=== PATIENT | female | born 1960 | race Caucasian/White ===

== ENCOUNTER 2018-08-28 10:24 | Inpatient (IN) | payer SELFPAY ==
[2018-08-28] VITALS: BP 100/52
[~2018-08-28] VITALS: Ht 154.9 cm; Wt 86.6 kg
[2018-08-28 11:50] LABS: APTT 31.6 SECONDS (22.8-39.4); INR 1.13 (0.85-1.17)
[2018-08-28 11:55] LABS: BASOPHILS 0.2 % (0-2); EOSINOPHILS 1.1 % (0-7); HEMATOCRIT 28.9 % (36.0-48.0); HEMOGLOBIN 9.9 g/dL (12-16); IMMATURE GRANULOCYTES 0.7 % (0-5); LYMPHOCYTES 10.6 % (15-50); MCH 29.7 pg (26.0-34.0); MCHC 34.3 g/dL (31.0-37.0); MCV 86.8 fL (80.0-100.0); MEAN PLATELET VOLUME 9.4 fL (7.4-10.4); NEUTROPHILS 77.4 % (40-80); PLATELET COUNT 177 10x3/uL (130-400); RBC 3.33 10x6/uL (4.00-5.40); RDW 13.5 % (11.5-14.5); WBC 9.2 10x3/uL (4.8-10.8)
[2018-08-28 12:14] LABS: ALBUMIN 2.7 g/dL (3.4-5.0); ALKALINE PHOSPHATASE 111 U/L (46-116); ALT (SGPT) 7 U/L (10-68); BILIRUBIN - TOTAL 0.43 mg/dL (0.2-1.3); CALC OSMOLALITY 288 mosm/kg (275-300); CALCIUM 8.9 mg/dL (8.5-10.1); CARBON DIOXIDE 14.6 mmol/L (21.0-32.0); CHLORIDE - SERUM 102 mmol/L (98-107); CREATININE - SERUM 2.6 mg/dL (0.6-1.3); GLUCOSE 202 mg/dL (74-106); POTASSIUM - SERUM 3.6 mmol/L (3.5-5.1); PROTEIN - SERUM 7.3 g/dL (6.4-8.2); SODIUM 135 mmol/L (136-145); UREA NITROGEN 50 mg/dL (7-18); eGFR NON AFRICAN AMERICAN 20 mL/min (90-120)
[2018-08-28 12:25] LABS: CKMB 0.5 U/L (0.0-3.6); CREATINE KINASE 46 UL (21-215); MAGNESIUM - SERUM 2.3 mg/dL (1.8-2.4); TROPONIN-I < 0.017 ng/mL (0.000-0.060)
[2018-08-28 13:51] LABS: % SATURATION 8 % (15-55); IRON 20 ug/dl (35-150); TOTAL IRON BIND CAPACITY 237 ug/dl (260-445); UNSAT IRON BIND CAPACITY 217 ug/dl (150-375)
--- NOTE | 2018-08-28 15:08 | MORECARE ---
CASE MANAGEMENT DISCHARGE SUMMARY PATIENT: JENN CORTÉS UNIT: [id number] ADM DATE: 08/28/18 AGE: 57 : 58 SEX: F ROOM/BED: D.2201 AUTHOR: KAT LUJAN PHYSICIAN: REFERRING PHYSICIAN: DANIEL PLEITEZ MD DATE OF SERVICE: 08/28/18 Discharge Plan Patient Name: JENN CORTÉS [facility] [facility] 1960 Planned Disposition: Home Anticipated Discharge Date: 08/30/18 Discharge Date: Expected LOS: 2 Initial Reviewer: [email or web address] Initial Review Date: 08/28/2018 Generated: 08/28/18 4:08 pm DCPIA - Discharge Planning Initial Assessment Updated by [email or web address]: Marium Post on 08/28/18 3:06 pm * Is the patient Alert and Oriented? Yes * How many steps to enter\exit or inside your home? None * PCP In [place] * Pharmacy In [place] * Preadmission Environment Home with Family * ADLs Independent * Equipment None * List name and contact numbers for known caregivers / representatives who currently or will assist patient after discharge: Anatoliy Cortés - spouse - Vernell e - [facility] - [phone] * Verbal permission to speak to the caregivers and representatives has been obtained from the patient. Yes * Community resources currently utilized None * Additional services required to return to the preadmission environment? No * Can the patient safely return to the preadmission environment? Yes * Has this patient been hospitalized within the prior 30 days at any hospital? No Patient Name: JENN CORTÉS Page [id number] at 1508 All edits/amendments must be made on the electronic document DICTATION DATE: 08/28/18 1508 MAIL COURIER: ELE 08/28/18 1508 RPT#: [id number] DC DATE: STATUS: ADM IN [facility] [address] [place] [address] END OF REPORT
--- NOTE | 2018-08-28 15:16 | MORECARE ---
CASE MANAGEMENT DISCHARGE SUMMARY PATIENT: JENN CORTÉS UNIT: [id number] ADM DATE: 08/28/18 AGE: 57 : 58 SEX: F ROOM/BED: D.2201 AUTHOR: LEDOC PHYSICIAN: REFERRING PHYSICIAN: DANIEL PLEITEZ MD DATE OF SERVICE: 08/28/18 Discharge Plan Patient Name: JENN CORTÉS Facility: [facility]:[place] : 1960 Planned Disposition: Home Anticipated Discharge Date: 08/30/18 Discharge Date: Expected LOS: 2 Initial Reviewer: [email or web address] Initial Review Date: 08/28/2018 Generated: 08/28/18 4:15 pm DCP- Discharge Planning Updated by [email or web address]: Marium Post on 08/28/18 2:[address] Patient Name: JENN CORTÉS Admission Status: ER Accout number: [id number] Admission Date: 08-28-2018 : 1960 Admission Diagnosis: Attending: DANIEL PLEITEZ Current LOS: 1 Anticipated DC Date: 08-30-2018 Planned Disposition: Home Primary Insurance: UNINSURED DISCOUNT PLAN Discharge Planning Comments: CM met with patient to complete initial dc planning assessment. CM educated patient on the CM role and verbal consent given by patient to complete assessment. Patient lives at home with her and reports she is independent in her care at home. At discharge patient plans to return home which is in [place] and feels this is a safe discharge. She reports her will transport her home at discharge. CM discussed availability of home health, rehab services, and medical equipment. Patient denied known discharge needs at this time. CM will continue to follow and will assist as needed with dc plans/needs. Fruit Packer: Marium Post RN, [facility] DCPIA - Discharge Planning Initial Assessment Updated by [email or web address]: Marium Post on 08/28/18 3:06 pm * Is the patient Alert and Oriented? Yes * How many steps to enter\exit or inside your home? None * PCP In [place] * Pharmacy In [place] * Preadmission Environment Home with Family * ADLs Independent * Equipment None * List name and contact numbers for known caregivers / representatives who currently or will assist patient after discharge: Anatoliy Cortés - spouse - Vernell Sye - sister - [phone] * Verbal permission to speak to the caregivers and representatives has been obtained from the patient. Yes * Community resources currently utilized None * Additional services required to return to the preadmission environment? No * Can the patient safely return to the preadmission environment? Yes * Has this patient been hospitalized within the prior 30 days at any hospital? No Last DP export: 08/28/18 2:08 pm Patient Name: JENN CORTÉS Page [id number] at 1516 All edits/amendments must be made on the electronic document DICTATION DATE: 08/28/181514 IMPLEMENTATION MANAGER: ELE 08/28/181514 RPT#: [id number] DC DATE: STATUS: ADM IN [facility] [address] [place] [address] END OF REPORT
--- NOTE | 2018-08-28 15:52 | NUR ---
NOTIFIED BY LAB OF LACTIC ACID OF 2.9. PRIMARY NURSE TATIANA AND TREATING PROVIDER NOTIFIED.
[2018-08-28 16:33] VITALS: BP 147/86; BMI 36.1
[2018-08-28] MEDS ORDERED: GLUCOPHAGE500 MG PO (16:33)
[2018-08-28 20:00] VITALS: BP 129/58
[2018-08-29 04:00] VITALS: BP 111/52
[2018-08-29 04:29] LABS: BASOPHILS 0.2 % (0-2); EOSINOPHILS 3.7 % (0-7); HEMOGLOBIN 8.6 g/dL (12-16); IMMATURE GRANULOCYTES 0.4 % (0-5); MCH 29.8 pg (26.0-34.0); MCHC 34.4 g/dL (31.0-37.0); MCV 86.5 fL (80.0-100.0); MEAN PLATELET VOLUME 9.5 fL (7.4-10.4); MONOCYTES 4.6 % (2-11); NEUTROPHILS 79.1 % (40-80); PLATELET COUNT 192 10x3/uL (130-400); RBC 2.89 10x6/uL (4.00-5.40); RDW 13.7 % (11.5-14.5)
[2018-08-29 04:54] LABS: WBC 5.4 10x3/uL (4.8-10.8)
[2018-08-29 05:10] LABS: ALBUMIN 2.1 g/dL (3.4-5.0); ALKALINE PHOSPHATASE 91 U/L (46-116); ALT (SGPT) 8 U/L (10-68); BILIRUBIN - TOTAL 0.26 mg/dL (0.2-1.3); CALCIUM 8.5 mg/dL (8.5-10.1); CARBON DIOXIDE 15.7 mmol/L (21.0-32.0); CHLORIDE - SERUM 107 mmol/L (98-107); POTASSIUM - SERUM 3.1 mmol/L (3.5-5.1); SODIUM 139 mmol/L (136-145)
[2018-08-29 05:12] LABS: CALC OSMOLALITY 287 mosm/kg (275-300); CKMB 2.7 U/L (0.0-3.6); CREATINE KINASE 249 UL (21-215); CREATININE - SERUM 1.9 mg/dL (0.6-1.3); GLUCOSE 117 mg/dL (74-106); UREA NITROGEN 37 mg/dL (7-18); eGFR NON AFRICAN AMERICAN 29 mL/min (90-120)
[2018-08-29 06:04] LABS: APPEARANCE HAZY (CLEAR); BACTERIA MODERATE /hpf (NONE SEEN); BILIRUBIN NEGATIVE (NEGATIVE); COLOR YELLOW (YELLOW); GLUCOSE NEGATIVE (NEGATIVE); KETONE NEGATIVE (NEGATIVE); NITRITE NEGATIVE (NEGATIVE); PROTEIN NEGATIVE (NEGATIVE); RED CELLS - URINE 0-5 /hpf (0-5); UROBILINOGEN NORMAL (NORMAL)
[2018-08-29 08:45] VITALS: BP 111/62
[2018-08-29 10:22] LABS: FOLATE (FOLIC ACID) - SERUM 6.9 ng/mL (>3.0)
[2018-08-29 12:04] VITALS: BMI 36.1
[2018-08-29 12:59] VITALS: BP 96/54
[2018-08-29 14:49] VITALS: Ht 154.9 cm; Wt 86.6 kg
[2018-08-29 17:45] VITALS: BP 110/45
[2018-08-29 20:00] VITALS: BP 110/61
[2018-08-29 23:35] VITALS: BP 118/56
[2018-08-30 03:00] VITALS: BP 127/57
[2018-08-30 06:23] LABS: BASOPHILS 0.2 % (0-2); EOSINOPHILS 9.6 % (0-7); HEMATOCRIT 25.6 % (36.0-48.0); HEMOGLOBIN 8.6 g/dL (12-16); IMMATURE GRANULOCYTES 0.2 % (0-5); LYMPHOCYTES 23.3 % (15-50); MCH 29.3 pg (26.0-34.0); MCHC 33.6 g/dL (31.0-37.0); MCV 87.1 fL (80.0-100.0); MEAN PLATELET VOLUME 9.3 fL (7.4-10.4); MONOCYTES 6.8 % (2-11); NEUTROPHILS 59.9 % (40-80); PLATELET COUNT 202 10x3/uL (130-400); RBC 2.94 10x6/uL (4.00-5.40); WBC 5.3 10x3/uL (4.8-10.8)
[2018-08-30 06:51] LABS: BILIRUBIN - TOTAL 0.2 mg/dL (0.2-1.3); CALCIUM 8.6 mg/dL (8.5-10.1); CARBON DIOXIDE 17.5 mmol/L (21.0-32.0); PROTEIN - SERUM 6.9 g/dL (6.4-8.2)
[2018-08-30 06:53] LABS: ANION GAP 19.8 mmol/L (8-16); CREATININE - SERUM 1.4 mg/dL (0.6-1.3); POTASSIUM - SERUM 3.3 mmol/L (3.5-5.1)
--- NOTE | 2018-08-30 08:04 | NUR ---
PT ALERT X 4. BREATH SOUNDS CLEAR BILAT. IV TO RIGHT AC, SALINE LOCKED. DRESSING TO LEFT SIDE OF NECK CLEAN DRY AND INTACT. PT REPORTING PAIN OF 9/10, MEDICATED PER ORDERS, WILL MONITOR. BED LOW, CALL LIGHT IN REACH. NO OTHER NEEDS AT THIS TIME.
[2018-08-30 10:59] VITALS: BP 160/80
[2018-08-30 13:40] VITALS: BP 148/67
[2018-08-30 16:59] VITALS: BP 147/64
[2018-08-30 20:36] VITALS: BP 125/58
[2018-08-30 23:55] VITALS: BP 150/62
[2018-08-31 04:20] VITALS: BP 136/62
[2018-08-31 07:40] LABS: BASOPHILS 0.2 % (0-2); EOSINOPHILS 8.2 % (0-7); HEMATOCRIT 26.5 % (36.0-48.0); IMMATURE GRANULOCYTES 0.7 % (0-5); LYMPHOCYTES 30.7 % (15-50); MCH 29.7 pg (26.0-34.0); MCV 87.5 fL (80.0-100.0); MEAN PLATELET VOLUME 9.2 fL (7.4-10.4); MONOCYTES 6.9 % (2-11); NEUTROPHILS 53.3 % (40-80); PLATELET COUNT 200 10x3/uL (130-400); RBC 3.03 10x6/uL (4.00-5.40); WBC 4.5 10x3/uL (4.8-10.8)
--- NOTE | 2018-08-31 07:52 | NUR ---
PT ALERT X 4. BREATH SOUNDS CLEAR BILAT. IV TO RIGHT AC, PATENT, DRESSING CLEAN DRY AND INTACT. DRESSING TO NECK CLEAN DRY AND INTACT. PT REPORTING NO PAIN AT THIS TIME. BED LOW, CALL LIGHT IN REACH. NO OTHER NEEDS AT THIS TIME.
[2018-08-31 07:55] LABS: ALBUMIN 2.1 g/dL (3.4-5.0); ANION GAP 17.9 mmol/L (8-16); BILIRUBIN - TOTAL 0.27 mg/dL (0.2-1.3); CALCIUM 8.6 mg/dL (8.5-10.1); CARBON DIOXIDE 19.3 mmol/L (21.0-32.0); CREATININE - SERUM 1.1 mg/dL (0.6-1.3); MAGNESIUM - SERUM 1.3 mg/dL (1.8-2.4); PHOSPHOROUS 3.4 mg/dL (2.5-4.9); POTASSIUM - SERUM 3.2 mmol/L (3.5-5.1); PROTEIN - SERUM 7.4 g/dL (6.4-8.2)
[2018-08-31 08:59] VITALS: BP 148/69
[2018-08-31 13:09] VITALS: BP 160/72
[2018-08-31 16:47] VITALS: BP 157/77
[2018-08-31 20:00] VITALS: BP 157/93
[2018-09-01] VITALS: BP 140/75
[2018-09-01 03:00] VITALS: BP 142/69
[2018-09-01 05:57] LABS: BASOPHILS 0.2 % (0-2); EOSINOPHILS 5.4 % (0-7); HEMATOCRIT 28.1 % (36.0-48.0); HEMOGLOBIN 9.6 g/dL (12-16); IMMATURE GRANULOCYTES 1.3 % (0-5); LYMPHOCYTES 30.1 % (15-50); MCHC 34.2 g/dL (31.0-37.0); MCV 87.8 fL (80.0-100.0); MONOCYTES 6.7 % (2-11); NEUTROPHILS 56.3 % (40-80); PLATELET COUNT 179 10x3/uL (130-400); RDW 13.5 % (11.5-14.5); WBC 4.6 10x3/uL (4.8-10.8)
[2018-09-01 06:21] LABS: ALBUMIN 2.3 g/dL (3.4-5.0); ANION GAP 16.6 mmol/L (8-16); BILIRUBIN - TOTAL 0.27 mg/dL (0.2-1.3); CALCIUM 8.2 mg/dL (8.5-10.1); CARBON DIOXIDE 23.6 mmol/L (21.0-32.0); CREATININE - SERUM 0.9 mg/dL (0.6-1.3); POTASSIUM - SERUM 3.2 mmol/L (3.5-5.1); PROTEIN - SERUM 6.7 g/dL (6.4-8.2)
--- NOTE | 2018-09-01 07:15 | NUR ---
MORNING ASESSMENT COMPLETE. SEE ASSESSMENT FLOWSHEET FOR FURTHER DETAILS. PT LYIGNG IN BED AAO X4 TO PERSON, PLACE, TIME, AND SITUATION. C/O NAUSEA/VOMITTING- WILL GIVE ZOFDRAN WITH MORNING MEDS. DENIES FURTHER NEEDS AT THIS TIME. CL IN REACH. SIDE RAILS UP X3 FOR GAVIN MERRITT
[2018-09-01 08:44] VITALS: BP 147/64
[2018-09-01 10:29] LABS: MAGNESIUM - SERUM 1.6 mg/dL (1.8-2.4); POTASSIUM - SERUM 3.5 mmol/L (3.5-5.1)
[2018-09-01 12:38] VITALS: BP 134/75
[2018-09-01] MEDS ORDERED: KEFLEX500 MG PO (15:01)
[2018-09-01] MEDS ORDERED: HYDROCODON-ACE1 EAC7 PO (15:02)
--- NOTE | 2018-09-01 15:24 | NUR ---
PT STATED SHE HAS HAD FLU SHOT FOR THIS YEAR
--- NOTE | 2018-09-01 16:17 | NUR ---
D/C PT HOME VIA W/C. LEFT WITH ALL PERSONLA BELONGINGS. WENT OVER ALL D/C INFORMATION AND PT DENIES CONCERNS. CHANGED DRSG TO L SIDE OF NECK AND INFORCED TEACHING ON HOW TO CHANGE AT HOME.
--- NOTE | 2018-09-02 09:31 | MORECARE ---
CASE MANAGEMENT DISCHARGE SUMMARY PATIENT: JENN CORTÉS UNIT: [id number] ADM DATE: 08/28/18 AGE: 57 : 58 SEX: F ROOM/BED: D.2201 AUTHOR: LEDOC PHYSICIAN: REFERRING PHYSICIAN: DANIEL PLEITEZ MD DATE OF SERVICE: 09/02/18 Discharge Plan Patient Name: JENN CORTÉS Facility: [facility]:[place] : 1960 Planned Disposition: Home Anticipated Discharge Date: 08/30/18 Discharge Date: 09/01/2018 Expected LOS: 2 Initial Reviewer: [email or web address] Initial Review Date: 08/28/2018 Generated: 09/02/18 10:31 am DCP- Discharge Planning Updated by [email or web address]: Marium Post on 08/28/18 1:[address] Patient Name: JENN CORTÉS Admission Status: ER Accout number: [id number] Admission Date: 08-28-2018 : 1960 Admission Diagnosis: Attending: DANIEL PLEITEZ Current LOS: 1 Anticipated DC Date: 08-30-2018 Planned Disposition: Home Primary Insurance: UNINSURED DISCOUNT PLAN Discharge Planning Comments: CM met with patient to complete initial dc planning assessment. CM educated patient on the CM role and verbal consent given by patient to complete assessment. Patient lives at home with her and reports she is independent in her care at home. At discharge patient plans to return home which is in [place] and feels this is a safe discharge. She reports her will transport her home at discharge. CM discussed availability of home health, rehab services, and medical equipment. Patient denied known discharge needs at this time. CM will continue to follow and will assist as needed with dc plans/needs. Veterinary Nurse: Marium Post RN, [facility] DCPIA - Discharge Planning Initial Assessment Updated by [email or web address]: Marium Post on 08/28/18 3:06 pm * Is the patient Alert and Oriented? Yes * How many steps to enter\exit or inside your home? None * PCP In [place] * Pharmacy In [place] * Preadmission Environment Home with Family * ADLs Independent * Equipment None * List name and contact numbers for known caregivers / representatives who currently or will assist patient after discharge: Anatoliy Cortés - spouse - Vernell Lazarusaubrey - sister - [phone] * Verbal permission to speak to the caregivers and representatives has been obtained from the patient. Yes * Community resources currently utilized None * Additional services required to return to the preadmission environment? No * Can the patient safely return to the preadmission environment? Yes * Has this patient been hospitalized within the prior 30 days at any hospital? No Last DP export: 08/28/18 1:15 pm Patient Name: EJNN CORTÉS Page 77191 at 0931 All edits/amendments must be made on the electronic document DICTATION DATE: 09/02/18929 SUGAR COATING HAND: ELE 09/02/18929 RPT#: [id number] DC DATE:09/01/18 STATUS: DIS IN [facility] [address] [place] [address] END OF REPORT
--- NOTE | 2018-09-02 15:10 | OP ---
PATIENT NAME: JENN CAMERON MEDICAL RECORD: [id number] :58 LOCATION:D.MS Ngo1 ADMISSION DATE:08/28/18 SURGEON: RALPH PEARCE MD DATE OF OPERATION: 08/29/2018 PREOPERATIVE DIAGNOSES: 1. Left neck abscess. 2. Hypertension. 3. Chronic kidney disease. 4. Chronic obstructive pulmonary disease. POSTOPERATIVE DIAGNOSES: 1. Left neck abscess. 2. Hypertension. 3. Chronic kidney disease. 4. Chronic obstructive pulmonary disease. PROCEDURE: I&D of the left neck. SURGEON: Ralph Pearce MD REPORT OF PROCEDURE: The patient's left neck was prepped and draped in sterile fashion. A 10 mL of 1% lidocaine with epinephrine was infused into the surrounding tissues. A cruciate incision was made in the left neck and immediately purulence was encountered. We turned this into a [place] incision and irrigated out this subcutaneous wound with peroxide solution. At the conclusion of this, we were having more clear return of fluid from the neck. There did not appear to be significant tracking through the neck. At this point, the wound was packed with the corner of a 4 x 4 and dressed with dry 4 4's and tape. COMPLICATIONS: None. CONDITION: Stable. ANESTHESIA: Local. BLOOD LOSS: 30 mL. Procedure done at the bedside. TRANSINT:[id number] Voice Confirmation ID: [id number] DOCUMENT ID: [id number] RALPH PEARCE MD at 1510 CC: [id number] DICTATION DATE: 08/29/18 1449 LIVESTOCK FARMWORKER: 08/29/181951 DIS IN 09/01/[address] [address]
== END 2018-09-01 16:28 | disposition home or self-care (01) | DRG 603 ==
LOC: D.ER 10:24 → D.EDHOLD 14:16 → D.MS 14:16
PROVIDERS: Family Medicine; Internal Medicine Nephrology; ADMIT Emergency Medicine; ATTEND Emergency Medicine
PROC: 0J953ZZ Drainage of Left Neck Subcutaneous Tissue and Fascia, Percutaneous Approach (ICD-10-PCS; principal; 2018-08-29)
DX: L03.221 Cellulitis of neck (principal); N17.9 Acute kidney failure, unspecified; E87.2 Acidosis; I13.0 Hypertensive heart and chronic kidney disease with heart failure and stage 1 through stage 4 chronic kidney disease, or unspecified chronic kidney disease; J44.9 Chronic obstructive pulmonary disease, unspecified; K21.9 Gastro-esophageal reflux disease without esophagitis; N18.9 Chronic kidney disease, unspecified; E11.22 Type 2 diabetes mellitus with diabetic chronic kidney disease; B95.61 Methicillin susceptible Staphylococcus aureus infection as the cause of diseases classified elsewhere; Z86.73 Personal history of transient ischemic attack (TIA), and cerebral infarction without residual deficits